=== PATIENT | female | born 1935 | race Two or more races ===

== ENCOUNTER 2019-06-26 14:19 | Outpatient (CLI) | payer OTHER ==
[~2019-06-26 14:19] MED LIST: DOLOGEN CAPLET1 TAB PO
== END 2019-06-26 14:24 | disposition home or self-care (01) ==
LOC: SONOGRAMA 14:19
DX: N95.0 Postmenopausal bleeding (principal)

== ENCOUNTER → 2024-06-14 13:33 | Outpatient (CLI) | payer OTHER ==
[2024-06-14 12:31] LABS: CALCIUM 9.2 mg/dL (8.5-10.1); CREATININE SERUM 0.82 mg/dL (0.55-1.02); GFR 66.1; POTASSIUM 3.9 mEq/L (3.5-5.1)
== END | disposition home or self-care (01) ==
LOC: LAB 10:46 → EDSTATUS 13:33 → LAB 13:33
PROVIDERS: ATTEND Internal Medicine
DX: I11.9 Hypertensive heart disease without heart failure (principal); E11.69 Type 2 diabetes mellitus with other specified complication; E78.1 Pure hyperglyceridemia; T82.897S Other specified complication of cardiac prosthetic devices, implants and grafts, sequela; M54.50 Low back pain, unspecified; R10.10 Upper abdominal pain, unspecified

== ENCOUNTER 2024-06-15 10:05 | Outpatient (CLI) | payer OTHER | END 2024-06-15 10:16 | disposition home or self-care (01) | LOC: TOM 10:05 | PROVIDERS: ATTEND Internal Medicine | DX: I11.9 Hypertensive heart disease without heart failure (principal); E11.69 Type 2 diabetes mellitus with other specified complication; E78.1 Pure hyperglyceridemia; T82.897S Other specified complication of cardiac prosthetic devices, implants and grafts, sequela; M54.50 Low back pain, unspecified; R10.10 Upper abdominal pain, unspecified | CPT/HCPCS: 74177; Q9965 ==

== ENCOUNTER 2025-04-05 08:27 | Outpatient (CLI) | payer OTHER, BC | END 2025-04-05 08:28 | disposition home or self-care (01) | LOC: NUCLEAR 08:27 | PROVIDERS: ATTEND Internal Medicine | DX: M79.602 Pain in left arm (principal) ==